=== PATIENT | female | born 1945 | race Caucasian/White ===

== ENCOUNTER → 2016-07-28 | Outpatient (CLI) | payer MEDICARE ==
[~2016-07-28] MED LIST: ALEN70TA47 PO; ASPI-860 PO; ATN25T PO; BUPR150T20 PO; CALC500T55 PO; CYCL1DRO2 OU; GLUC-116 PO; HYDR-3702 PO; IRON18TA PO; MULT-890 PO; MULT-954 PO; PRM25T PO
[2016-07-28 07:48] LABS: BASOPHILS % (AUTO) 1 % (0-2); EOSINOPHILS # (AUTO) 0.2 10^3uL; EOSINOPHILS % (AUTO) 3 % (0-4); MEAN CORPUSCULAR HEMOGLOBIN 28.2 PG (26.0-34.0); MEAN CORPUSCULAR HGB CONC 32.6 g/dL (31.0-37.0); MEAN CORPUSCULAR VOLUME 87 FL (80-100); MEAN PLATELET VOLUME 10.2 FL (6.0-9.5); MONOCYTES # (AUTO) 0.5 X10^3; MONOCYTES % (AUTO) 7 % (3-11); NEUTROPHILS # (AUTO) 3.9 X10^3; NEUTROPHILS % (AUTO) 59 % (51-67); PLATELET COUNT 263 10^3uL (150-450); WHITE BLOOD COUNT 6.73 10^3uL (4.0-11.0)
[2016-07-28 08:33] LABS: ALBUMIN 4.2 g/dL (3.4-5.0); ANION GAP 14.4 MEQ/L (3-15); CALCULATED IONIZED CALCIUM 4.1 mg/dL (3.8-4.6); TOTAL PROTEIN 7.2 g/dL (6.4-8.5)
== END ==
LOC: LAB 07:15
PROVIDERS: ATTEND Internal Medicine
DX: Z00.00 Encounter for general adult medical examination without abnormal findings (principal); I10 Essential (primary) hypertension; E78.00 Pure hypercholesterolemia, unspecified; M85.80 Other specified disorders of bone density and structure, unspecified site
CPT/HCPCS: 36415; 80053; 80061; 82306; 84443; 85025

== ENCOUNTER → 2016-08-18 | Outpatient (CLI) | payer MEDICARE | LOC: RAD 11:41 | PROVIDERS: ATTEND Internal Medicine | DX: M25.521 Pain in right elbow (principal); S52.131A Displaced fracture of neck of right radius, initial encounter for closed fracture; W19.XXXA Unspecified fall, initial encounter | CPT/HCPCS: 73080 ==

== ENCOUNTER → 2016-08-29 | Outpatient (CLI) | payer MEDICARE | LOC: RAD 07:50 | PROVIDERS: ATTEND Internal Medicine | DX: Z12.31 Encounter for screening mammogram for malignant neoplasm of breast (principal) ==

== ENCOUNTER → 2016-09-05 | Outpatient (CLI) | payer MEDICARE | LOC: RAD 13:32 | PROVIDERS: ATTEND Internal Medicine | DX: R92.0 Mammographic microcalcification found on diagnostic imaging of breast (principal) ==

== ENCOUNTER → 2016-11-21 | Outpatient (REF) | payer MEDICARE | LOC: LAB 12:37 | PROVIDERS: ATTEND Internal Medicine | DX: Z11.59 Encounter for screening for other viral diseases (principal) | CPT/HCPCS: 86803 ==